=== PATIENT | male | born 1950 | race Caucasian/White ===

== ENCOUNTER → 2019-08-23 10:28 | Outpatient (BNVA) | payer MEDICARE, OTHER, SELFPAY | PROVIDERS: Family Provider Family Medicine; PCP Nurse Practitioner Family; Visit Provider Nurse Practitioner Family | DX: I10 Essential (primary) hypertension (principal); Z12.6 Encounter for screening for malignant neoplasm of bladder; Z12.5 Encounter for screening for malignant neoplasm of prostate | CPT/HCPCS: 80053; 80061; 81000; 84439; 84443; G0103 ==

== ENCOUNTER → 2019-10-05 09:58 | Outpatient (BNVA) | payer MEDICARE, OTHER, SELFPAY | PROVIDERS: Family Provider Family Medicine; PCP Nurse Practitioner Family; Visit Provider Nurse Practitioner Family | DX: R31.9 Hematuria, unspecified (principal) | CPT/HCPCS: 81000 ==

== ENCOUNTER → 2020-10-11 16:17 | Outpatient (BNVA) | payer MEDICARE, OTHER, SELFPAY | PROVIDERS: Family Provider Family Medicine; PCP Nurse Practitioner Family; Visit Provider Nurse Practitioner Family | DX: N52.9 Male erectile dysfunction, unspecified (principal); I10 Essential (primary) hypertension | CPT/HCPCS: 80053; 80061; 84153; 84439; 84443; 85025 ==

== ENCOUNTER → 2021-07-18 09:00 | Outpatient (BNVA) | payer MEDICARE, OTHER, SELFPAY | PROVIDERS: Family Provider Family Medicine; PCP Nurse Practitioner Family; Visit Provider Nurse Practitioner Family | DX: I10 Essential (primary) hypertension (principal) | CPT/HCPCS: 80053; 80061; 85025 ==

== ENCOUNTER 2021-08-14 11:49 | Emergency (ER) | payer MEDICARE, OTHER, SELFPAY ==
[2021-08-14 12:05] VITALS: BP 141/75; PULSE 69; RESP 18; TEMP 36.6; O2SAT 95; BMI 28.7
--- NOTE | 2021-08-14 12:18 | ECG_ITS ---
[facility] Test Date: 2021-08-14 Pat Name: Stan Bañuelos Department: Room: Gender: Male Facing Baster: : 1950 Requested By: Silvestre Tejeda Order Number: [id number] Bella MD: Tete Barron M.D. Measurements Intervals [place] Rate: 69 P: 66 ND: 225 QRS: 11 QRSD: 97 T: 44 QT: 373 QTc: 400 Interpretive Statements SINUS RHYTHM WITH FIRST DEGREE AV BLOCK No previous ECG available for comparison Electronically Signed On 08-14-2021 16:44:31 CDT by Tete Barron M.D. [id number]
--- NOTE | 2021-08-14 12:18 | XR_ITS ---
WS: [id number] Exam: XR chest 1V portable [id number] Date/Time of Exam: 08/14/2021 12:23 PM Reason For Exam: syncopal episode No priors. The lungs are clear and fully expanded. Normal cardiomediastinal silhouette. No pleural effusions. Up per thoracic scoliosis with right convexity. Bony structures are intact. Anchoring screw in the right humeral head. XR/XR chest 1V portable [id number] IMPRESSION: 1. No acute cardiopulmonary finding.
--- NOTE | 2021-08-14 12:18 | CT_ITS ---
WS: [id number] CT HEAD TECHNIQUE: Noncontrast CT of the head obtained from the skullbase to the vertex. CLINICAL INFORMATION: syncopal episode COMPARISON: None. DLP: 943.[address] scans at [facility] use at least one of these dose optimization techniques: automated e xposure control; mA and/or kV adjustment per patient size (includes targeted exams where dose is matc hed to clinical indication); or iterative reconstruction. FINDINGS: No evidence of intracranial hemorrhage or mass effect. Ventricular system and basal cisterns are wise nt. Mild small vessel changes with moderate parenchymal volume loss. Tiny chronic lacunar infarct LEF T anterior caudate. No extra-axial fluid collections. No evidence of mass or mass effect. Normal cooper -white differentiation. Mastoid air cells are well aerated. Small retention cyst in the maxillary sinus. Mild mucosal thickening in the ethmoid air cells and sph enoid sinus. CT/CT head wo con* [id number] IMPRESSION: 1. No evidence of intracranial hemorrhage or mass effect. 2. Mild small vessel changes. Moderate parenchymal volume loss. 3. No acute intracranial findings.
--- NOTE | 2021-08-14 12:37 | ED_ITS ---
HPI - Syncope General: Chief Complaint: Syncope Stated Complaint: lightheaded / numbness in left arm Time Seen by Provider: 08/14/21 12:17 History of Present Illness: Patient is a 71-year-old male comes to the ED after having a syncopal episode yesterday. Patient was at orthopedic doctor's office getting a right knee injection and he had a syncopal episode right after injection. Patient said that was the most painful knee injection he is ever had. During injection procedure Syncopal episode occurred while he was laying on exam table. The orthopedic doctor said patient did do some extremity shaking and had urinary incontinence during episode. It lasted briefly and then patient came to and had another brief syncopal episode shortly after that while on exam table in orthopedic office. He then came to and started feeling better. He was able to be up and move around at the orthopedic office and felt stable to go home. Orthopedic office called EMS to come get him but patient was feeling better and left before EMS could evaluate him. Today says he just feels a bit off. He cannot necessarily put his finger on what exactly his symptoms are. He said in the couple weeks prior to him having syncopal episodes he had some brief episodes of chest pain that resolved and he has not had any similar episodes like that in in several days. He also reports having more left upper extremity numbness and tingling that starts down in the hand and radiates up into the elbow. He has been having this on and off for the past several weeks. Patient says he has no history of seizures. After syncopal episode he denies any postictal state. Today patient does endorse feeling a little fatigued. Denies any nausea vomiting, fevers, shortness of breath, chest pain, abdominal pain, bladder or bowel symptoms. Associated symptoms: Deny abdominal pain, chest pain, fever(s), headache(s) or nausea Review of Systems Const: Denies: fever(s), chills or fatigue Eyes: Denies: change in vision or eye discomfort ENMT: Denies: throat pain, odynophagia, nasal discharge or nasal congestion Card: Reports: syncope; Denies: chest pain, palpitations, edema, swelling of feet/ankles, dyspnea on exertion or orthopnea Resp: Denies: dyspnea, productive cough or non-productive cough GI: Denies: abdominal pain, nausea, vomiting, diarrhea, constipation or hematochezia : Denies: flank pain, difficulty urinating, dysuria or hematuria Musc: Denies: neck pain, back pain or extremity swelling Skin/Breast: Denies: rash or new lesions Neuro: Reports: numbness in extremities (Left upper extremity) and seizure-lik e activity; Denies: headache(s) or weakness in extremities PFSH ED PFSH: Medical History Erectile dysfunction Hypertension Social History Smoking and tobacco status: never smoked Physical Exam Const: COMMON NORMALS: patient oriented x3 and alert GENERAL APPEARANCE: cooperative HENMT: COMMON NORMALS: normocephalic HEAD & SCALP: normocephalic MOUTH: Normal oral and palatal mucosa present THROAT: posterior oropharynx normal and uvula midline Eye: COMMON NORMALS: conjunctivae normal CONJUNCTIVA: Yes conjunctivae normal Neck/C-Spine: COMMON NORMALS: supple GENERAL: Yes normal visual inspection Resp: COMMON NORMALS: normal respiratory effort, No retractions, No use of accessory muscles and clear to auscultation bilaterally AUSCULTATION: clear to auscultation bilaterally Cardio: COMMON NORMALS: regular rate, regular rhythm, S1 normal heart sound present, S2 normal heart sound present, No gallops present (Cardio), No clicks present (Cardio), No murmurs present (Cardio) and Peripheral pulses 2+ throughout RATE: regular rate RHYTHM: regular rhythm HEART SOUNDS: S1 normal heart sound present and S2 normal heart sound present PERIPHERAL PULSES: Peripheral pulses 2+ throughout GI: COMMON NORMALS: Normal to inspection, nondistended, normoactive bowel sounds present, Soft to palpation, non-tender and no masses PALPATION: Yes Soft to palpation : COMMON NORMALS: Yes no CVA tenderness BLADDER/KIDNEY EXAM: Yes no CVA tenderness Back/Pelvis: COMMON NORMALS: no CVA tenderness Extremity: GENERAL: Yes normal exam except as noted LEFT UPPER EXTREMITY: Yes wrist Left wrist: Yes special tests Left wrist special tests: Phalen's test: Positive Neuro: COMMON NORMALS: patient oriented x3, CN's II-XII intact bilaterally, moves all extremities, no focal motor deficits and no sensory deficits noted SENSORIUM/ORIENTATION: Yes alert SENSORY EXAM: Yes extremities (intact) MOTOR EXAM: 5/5 motor strength present throughout Skin: GENERAL SKIN EXAM: dry skin Course Reevaluation(s): Reevaluation #1: Patient is still asymptomatic and reports feeling completely normal now. Denies any chest pain, shortness of breath, nausea. He states the feeling he had this morning his just went away. Time: 15:24 Vital Signs: Vital signs: Vital Signs Temperature 98 F 08/14/21 12:05 Pulse Rate 69 08/14/21 12:05 Respiratory Rate 18 08/14/21 12:05 Blood Pressure 141/75 08/14/21 12:05 Pulse Oximetry 95 08/14/21 12:05 MDM - Syncope Medical Decision Making Patient is a 71-year-old male comes to the ED after having a syncopal episode yesterday. Patient syncopal episode occurred while he was getting a right knee injection. He said it was the most pain he is ever felt during a knee injection and then had syncopal episode during procedure. This morning he woke up and felt just a little off but denies any chest pain, shortness of breath. He does have some left arm numbness/tingling that is episodic and its been going on now for approximately 3 weeks. Vital stable. Patient appears nontoxic and in no acute distress or pain. Neuro exam is normal. He does have a positive phalens test with left wrist which is likely the cause of his left arm numbness and tingling episodes. CBC, CMP were unremarkable. Troponin negative. EKG showed normal sinus rhythm with first-degree A-V block. No other acute findings seen on EKG. Chest x-ray showed no acute findings. Head CT showed no intracranial acute findings or hemorrhage. Patient's syncopal episode likely due to vasovagal reaction from extreme pain. He feels completely normal here in the ED and is stable for discharge home. He was told to follow-up with his PCP within the next 3 to 5 days for reevaluation. Return to ED precautions given. Patient understood and agreed with plan. Lab Data I reviewed the patient's lab results. : 08/14/21 13:39 08/14/21 13:39 Radiology Impressions Chest X-Ray 08/14/21 12:18 IMPRESSION: 1. No acute cardiopulmonary finding. Head CT 08/14/21 12:18 IMPRESSION: 1. No evidence of intracranial hemorrhage or mass effect. 2. Mild small vessel changes. Moderate parenchymal volume loss. 3. No acute intracranial findings. Laboratory Results WBC 6.0 10^3/uL (4.0-10.0) 08/14/21 13:39 RBC 5.21 10^6/uL (4.1-5.3) 08/14/21 13:39 Hgb 17.1 g/dL (11.7-16.6) H 08/14/21 13:39 Hct 50.1 % (42.0-52.0) 08/14/21 13:39 MCV 96.2 fl (80-94) H 08/14/21 13:39 MCH 32.8 pg (28.0-34.0) 08/14/21 13:39 MCHC 34.1 g/dL (30.0-36.0) 08/14/21 13:39 RDW 11.8 % (12.1-15.1) L 08/14/21 13:39 Plt Count 210 10^3/cmm (130-400) 08/14/21 13:39 MPV 8.8 fL (7.4-10.4) 08/14/21 13:39 Neut % (Auto) 63.3 % 08/14/21 13:39 Lymph % (Auto) 22.5 % 08/14/21 13:39 Hart % (Auto) 11.4 % 08/14/21 13:39 Eos % (Auto) 1.8 % 08/14/21 13:39 Baso % (Auto) 0.8 % 08/14/21 13:39 Neut # (Auto) 3.77 10^3/uL (1.8-7.7) 08/14/21 13:39 Lymph # (Auto) 1.3 10^3/uL (0.8-4.8) 08/14/21 13:39 Hart # (Auto) 0.7 10^3/uL (0.2-0.9) 08/14/21 13:39 Eos # (Auto) 0.1 10^3/uL (0.0-0.8) 08/14/21 13:39 Baso # (Auto) 0.1 10^3/uL (0.0-0.1) 08/14/21 13:39 Nucleated RBC % (auto) 0 % 08/14/21 13:39 Nucleated RBCs # 0.0 /100WBC 08/14/21 13:39 PT Cancelled 08/14/21 13:39 INR Cancelled 08/14/21 13:39 APTT Cancelled 08/14/21 13:39 Sodium 135 mmol/L (136-145) L 08/14/21 13:39 Potassium 4.0 mmol/L (3.5-5.1) 08/14/21 13:39 Chloride 97 mmol/L (98-107) L 08/14/21 13:39 Carbon Dioxide 26 mmol/L (22-29) 08/14/21 13:39 Anion Gap 16.0 (5-19) 08/14/21 13:39 BUN 17 mg/dL (8-23) 08/14/21 13:39 Creatinine 0.9 mg/dL (0.7-1.2) 08/14/21 13:39 GFR Calculation Not Reportable 08/14/21 13:39 Glucose 96 mg/dL (65-115) 08/14/21 13:39 Calculated Osmolality 281 mOsm/kg (285-295) L 08/14/21 13:39 Calcium 8.7 mg/dL (8.5-10.5) 08/14/21 13:39 Total Bilirubin 0.3 mg/dL (0.15-1.2) 08/14/21 13:39 AST 18 U/L (0-40) 08/14/21 13:39 ALT 19 U/L (0-41) 08/14/21 13:39 Alkaline Phosphatase 95 IU/L (40-130) 08/14/21 13:39 Troponin T Baseline 9 ng/L (0-15) 08/14/21 13:39 Total Protein 7.9 g/dL (6.6-8.7) 08/14/21 13:39 Albumin 4.3 g/dL (3.5-5.2) 08/14/21 13:39 Globulin 3.6 g/dL (1.3-4.6) 08/14/21 13:39 EKG Data EKG 1: EKG interpretation date: 08/14/21 Interpretation: Sinus rhythm with first-degree AV block. Rate 69 bpm, no ST segment elevation or depression seen. EKG 2: EKG interpretation date: 08/14/21 EKG interpretation time: 14:40 Interpretation: Sinus rhythm with first-degree AV block. 68 bpm. Occasional PVC. No ST segment elevation or depression seen. Discharge Plan Discharge Patient Disposition: Home Clinical Impression: Episode of syncope Qualifiers: Syncope type: vasovagal syncope Qualified Code(s): R55 - Syncope and collapse Condition: Stable Prescriptions: No Action tadalafil [Cialis] 20 mg tablet 20 mg PO DAILY PRN0RF betamethasone dipropionate 0.05 % cream 1 applic TOPICAL BID PRN (Reason: itching) Qty: 45 3RF tamsulosin 0.4 mg capsule 0.4 mg PO DAILY 0RF finasteride 5 mg tablet 5 mg PO DAILY 0RF naproxen sodium [Aleve] 220 mg tablet 220 mg PO BID PRN0RF valsartan 40 mg tablet See Rx Instructions .ROUTE .COMPLEX Qty: 175 0RF Dose Instruction: TAKE 1 TABLET BY MOUTH EVERY DAY Rx Instructions: TAKE 1 TABLET BY MOUTH EVERY DAY hydrochlorothiazide 12.5 mg tablet See Rx Instructions .ROUTE .COMPLEX Qty: 90 0RF Dose Instruction: TAKE 1 TABLET BY MOUTH EVERY MORNING Rx Instructions: TAKE 1 TABLET BY MOUTH EVERY MORNING Discharge Orders: Discharge ED (Routine); Ordered 08/14/21 Ordered By: Silvestre Tejeda Referrals: Azra Haque NP [Primary Care Provider] - Discharge Diet: Regular Discharge Activity: Increase activity as tolerated Patient Instructions: Syncope in Older Adults (ED) Activity Restrictions/Additional Instructions: Follow-up with medical provider as directed in the next 3 to 5 days for reeva luation. continue taking all your home medications as previously prescribed. Return to the ER or your medical provider if condition worsens. Please read and understand discharge instructions. Thank you for choosing [facility] for your healthcare needs today. Please realize this is an emergency room and that we are providing you with a medical screening exam and this may not be complete and all inclusive of all the testing and or work up that you may need to determine your ailment or severity of your illness. It is very important that you follow up as instructed or that you return to the Emergency Department should you have concerns or if your condition changes or worsens in any way. Coding Level of Care Code ED Emergency Man for [facility] Exam Comprehensive
[2021-08-14 13:47] LABS: Basophils # 0.1 10^3/uL (0.0-0.1); Basophils % 0.8 %; Eosinophils # 0.1 10^3/uL (0.0-0.8); Eosinophils % 1.8 %; Hematocrit 50.1 % (42.0-52.0); Hemoglobin 17.1 g/dL (11.7-16.6); Lymphocytes # 1.3 10^3/uL (0.8-4.8); Lymphocytes % 22.5 %; Mean Corpuscular HGB Conc 34.1 g/dL (30.0-36.0); Mean Corpuscular Hemoglobin 32.8 pg (28.0-34.0); Mean Corpuscular Volume 96.2 fl (80-94); Mean Platelet Volume 8.8 fL (7.4-10.4); Monocytes # 0.7 10^3/uL (0.2-0.9); Monocytes % 11.4 %; Neutrophils # 3.77 10^3/uL (1.8-7.7); Neutrophils % 63.3 %; Nucleated Red Blood Cells % 0 %; Platelet Count 210 10^3/cmm (130-400); Red Blood Count 5.21 10^6/uL (4.1-5.3); Red Cell Distribution Width 11.8 % (12.1-15.1)
[2021-08-14 14:15] LABS: Alanine Aminotransferase 19 U/L (0-41); Albumin Level 4.3 g/dL (3.5-5.2); Alkaline Phosphatase 95 IU/L (40-130); Aspartate Amino Transferase 18 U/L (0-40); Blood Urea Nitrogen 17 mg/dL (8-23); Calcium 8.7 mg/dL (8.5-10.5); Carbon Dioxide 26 mmol/L (22-29); Chloride 97 mmol/L (98-107); Creatinine Clr Calc Pharmacy 84.0421; Globulin 3.6 g/dL (1.3-4.6); Glucose 96 mg/dL (65-115); Osmolality Calculated 281 mOsm/kg (285-295); Sodium 135 mmol/L (136-145); Total Bilirubin 0.3 mg/dL (0.15-1.2); Total Protein 7.9 g/dL (6.6-8.7)
[2021-08-14 14:16] LABS: Troponin(5th) Baseline 9 ng/L (0-15)
--- NOTE | 2021-08-14 14:18 | ECG_ITS ---
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 Measurements Intervals [place] Rate: 68 P: 80 MS: 238 QRS: 15 QRSD: 98 T: 47 QT: 392 QTc: 420 Interpretive Statements Sinus rhythm with first-degree AV block with frequent isolated PACs and PVCs Compared to ECG 08/14/2021 12:41:11 Sinus rhythm no longer present Electronically Signed On 08-14-2021 16:47:11 CDT by Tete Barron M.D. [id number]
== END 2021-08-14 15:45 | disposition home or self-care (01) ==
PROVIDERS: Emergency Provider Physician Assistant; PCP Nurse Practitioner Family
DX: R55 Syncope and collapse (principal)
CPT/HCPCS: 70450; 71045; 80053; 84484; 85025; 93005; 99282

== ENCOUNTER → 2022-11-18 16:20 | Outpatient (BNVA) | payer MEDICARE, OTHER, SELFPAY | PROVIDERS: PCP Nurse Practitioner Family; Visit Provider Nurse Practitioner Family | DX: I10 Essential (primary) hypertension (principal); Z12.5 Encounter for screening for malignant neoplasm of prostate | CPT/HCPCS: 80053; 80061; 84443; G0103 ==

== ENCOUNTER 2024-01-11 07:54 | Outpatient (CLI) | payer MEDICARE, OTHER, SELFPAY ==
--- NOTE | 2024-01-11 08:11 | NMCV_ITS ---
NM steffanie perf SPECT r/s* [id number] Jamil Bañuelos Age: 73 Gender: M : 1950 Exam Date: 01/11/2024 08:52 Ordering Phys: Darby Greco MD Technologist: VISH Dickey Exam Location: [facility] Indications: cp STRESS TEST Please [facility] IMAGE PROTOCOL Rest/Stress 1 Exercise Day Radiopharmaceutical Dose (mCi) Administration Site Administered by Rest: Tc-99m 11 IV Tram Melgar [facility] Sestamibi Stress:Tc-99m 31.9 IV Tram Melgar, [facility] Sestamibi Rest: 11-Jan-2024 60 Discovery 630 Stress: 11-Jan-2024 15 Discovery 630 Radiopharmaceutical was injected at 85 % maximum heart rate. Images obtained in supine and prone position. SPECT RESULTS Technical Quality: Good Raw Data Analysis: Normal Image Corrections: No attenuation or motion correction applied Summed Stress Score: 1 Summed Rest Score: 3 Summed Difference Score: 0 PERFUSION FINDINGS SPECT images demonstrate homogeneous tracer distribution throughout the myocardium. FUNCTIONAL RESULTS (calculated via Gated SPECT) Stress Image LV EF (%): 74 Stress EDV (mL):69 TID: 0.71 Stress ESV (mL):18 FUNCTIONAL FINDINGS: There is normal left ventricular systolic function. IMPRESSIONS 1. Normal myocardial perfusion imaging with no evidence of ischemia 2. LV systolic function is normal Jose Raymundo MD (Electronically Signed) Final Date: 11 January 2024 11:14 S
--- NOTE | 2024-01-11 08:11 | ECG_ITS ---
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 Interpretive Statements NAME OF STUDY: EXERCISE SESTAMIBI STRESS TEST INDICATION: [FATIGUE/HTN/INCREASED CORONARY ARTERY CALCIUM SCORE, ] EXERCISE DATA: The patient was exercised by Terrell protocol. Baseline heart rate was 72 beats per minute. Baseline blood pressure was 126/68 millimeters of mercury. Maximal predicted heart rate was 146 beats per minute. Maximum heart rate achieved was 131 which was 89% of the maximum predicted heart rate. Maximum blood pressure was 177/55 millimeters of mercury. Total exercise time was 5 minutes. Maximum METs achieved was 7.0. The reason for ending the test was completion of protocol. The patient complained of shortness of breath during the stress test, which then resolved at the end of the test. ELECTROCARDIOGRAM: BASELINE: Showed sinus rhythm, inferior lead q waves and PVCs EXERCISE: At the peak exercise level, [] No significant ST-T changes suggestive of ischemia noted. [] RECOVERY: During the recovery period, heart rate dropped appropriately. No significant ST-T changes in the recovery suggestive of ischemia noted. [] CONCLUSION: 1. Exercise capacity is fair. 2. Heart rate response was appropriate 3. Blood pressure response was appropriate 4. Symptoms not suggestive of ischemia. 5. Electrocardiogram portion of the stress test was not suggestive of ischemia. 6. Nuclear scan will be documented separately. Electronically Signed On 01-22-2024 17:18:15 CDT by Jose Raymundo M.D. [email or web address]
[2024-01-11 08:12] VITALS: BMI 30.1
[2024-01-11 09:57] VITALS: BP 148/51; PULSE 96
== END 2024-01-11 07:55 | disposition home or self-care (01) ==
LOC: CDL 07:55
PROVIDERS: PCP Nurse Practitioner Family; Visit Provider Internal Medicine Interventional Cardiology
DX: R06.02 Shortness of breath (principal); I10 Essential (primary) hypertension; R93.1 Abnormal findings on diagnostic imaging of heart and coronary circulation; R53.83 Other fatigue
CPT/HCPCS: 36415; 78452; 93017; 96374; A9500